=== PATIENT | female | born 1955 | race Caucasian/White ===

== ENCOUNTER → 2021-07-31 | Outpatient (CLI) | payer BC ==
--- NOTE | 2021-07-31 13:10 | RAD ---
EXAMINATION: XR SHOULDER_LEFT 2+ VIEWS CLINICAL HISTORY: LEFT SHOULDER PAIN- WORSENING, HX ROTATOR CUFF REPAIR X 4 YRS AGO TECHNIQUE: XR SHOULDER_LEFT 2+ VIEWS Number of Images/Views: 4 COMPARISON: None FINDINGS: Postoperative changes related to prior rotator cuff repair. Glenohumeral joint suboptimally evaluated secondary to patient positioning. Mild hypertrophic acromioclavicular degenerative changes. No acute fracture. IMPRESSION: No acute osseous abnormality on limited evaluation as described. Electronically signed by: Dave Fernandez DO (07/31/2021 1:08 PM) [id number]
== END ==
LOC: RAD 11:55
PROVIDERS: ATTEND Orthopaedic Surgery
DX: M19.012 Primary osteoarthritis, left shoulder (principal); Z98.890 Other specified postprocedural states
CPT/HCPCS: 73030